=== PATIENT | male | born 2005 | race Caucasian/White ===

== ENCOUNTER 2024-04-03 22:01 | Observation (INO) | payer BC, OTHER ==
--- NOTE | 2024-04-03 22:44 | XR ---
EXAMINATION TYPE: XR chest 2V DATE OF EXAM: 04/03/2024 COMPARISON: NONE HISTORY: Shortness of breath. TECHNIQUE: Frontal and lateral views of the chest are obtained. FINDINGS: There is no focal air space opacity, pleural effusion, or pneumothorax seen. The cardiac silhouette size is within normal limits. The osseous structures are intact. IMPRESSION: No acute cardiopulmonary process. [facility], , 04/03/2024 10:42 PM
[2024-04-03] MEDS: methylPREDNISolone SOD SUCCI 125 MG/2 ML VIAL IM ONE (23:42)
[2024-04-04] MEDS: MAGNESIUM SULFATE-D5W PMX 1 GM in DEXTROSE/WATER 1 100ML.BAG IVPB SCH (01:03)
[2024-04-04] MEDS: methylPREDNISolone SOD SUCCI 125 MG/2 ML VIAL IV STA (01:04)
[2024-04-04] MEDS: predniSONE 20 MG TAB PO STA (01:05)
[2024-04-04 01:11] LABS: Basophils % (A) 0 %; Eosinophils # (A) 0.3 k/uL (0-0.7); Eosinophils % (A) 2 %; HCT 50.9 % (39.0-53.0); HGB 16.1 gm/dL (13.0-17.5); Lymphocytes # (A) 0.5 k/uL (1.0-4.8); Lymphocytes % (A) 3 %; MCH 26.3 pg (25.0-35.0); MCHC 31.7 g/dL (31.0-37.0); MCV 82.9 fL (80.0-100.0); Mean Platelet Volume 7.5; Monocytes # (A) 0.3 k/uL (0-1.0); Monocytes % (A) 2 %; Neutrophils % (A) 93 %; Platelet Count 340 k/uL (150-450); RBC 6.14 m/uL (4.30-5.90); RDW 13.8 % (11.5-15.5); WBC 18.3 k/uL (4.0-11.0)
[2024-04-04] MEDS: IPRATROPIUM-ALBUTEROL 3 ML NEB INHALATION STA ×3 (01:20)
[2024-04-04 01:50] LABS: ALT 24 U/L (4-49); AST 30 U/L (17-59); African American GFR (CKD) >90 (>60 ml/min/1.73 sqM); Albumin 5.4 g/dL (3.5-5.0); Alkaline Phosphatase 93 U/L (38-126); Anion Gap 14 mmol/L; Blood Urea Nitrogen 12 mg/dL (9-20); Carbon Dioxide 20 mmol/L (22-30); Chloride 106 mmol/L (98-107); Glucose 117 mg/dL (74-99); Non-African American GFR(CKD) >90 (>60 ml/min/1.73 sqM); Potassium 4.4 mmol/L (3.5-5.1); Sodium 140 mmol/L (137-145); Total Bilirubin 0.8 mg/dL (0.2-1.3); Total Protein 9.1 g/dL (6.3-8.2)
[2024-04-04] MEDS ORDERED: NALOXONE 0.4 MG/ML 1 ML VIAL IV PRN (02:16)
[2024-04-04] MEDS ORDERED: ACETAMINOPHEN TAB 325 MG TAB PO PRN (02:16)
--- NOTE | 2024-04-04 02:33 | ED ---
URI HPI - General Chief Complaint: Upper Respiratory Infection Stated Complaint: LUKE Time Seen by Provider: 04/03/24 22:53 Source: patient Mode of arrival: ambulatory Limitations: no limitations - History of Present Illness Initial Comments: 18-year-old male with history of asthma presenting with chief complaint of difficulty breathing. Patient states that he feels like he cannot take a deep breath. He has also been coughing. Patient is a daily marijuana smoker and also vapes. No fever. No chest pain. No nausea or vomiting. No congestion or sore throat. He was taking his albuterol inhaler at home without relief. Symptoms have been ongoing for 2 days. - Related Data Previous Rx's Medication Instructions Recorded Ipratropium-Albuterol Nebulize 3 ml INHALATION RT-Q6H PRN #20 each 04/05/24 [Duoneb 0.5 mg-3 mg/3 ml Soln] predniSONE 10 mg PO DIRECTED #12 tab 04/05/24 Allergies Allergy/AdvReac Type Severity Reaction Status Date / Time morphine Allergy Unknown Verified 04/04/24 07:40 Review of Systems ROS Statement: Those systems with pertinent positive or pertinent negative responses have been documented in the HPI. ROS Other: All systems not noted in ROS Statement are negative. Past Medical History Past Medical History: Asthma History of Any Multi-Drug Resistant Organisms: None Reported Past Surgical History: No Surgical Hx Reported Past Psychological History: No Psychological Hx Reported Smoking Status: Never smoker Past Alcohol Use History: None Reported Past Drug Use History: None Reported General Exam Limitations: no limitations General appearance: alert (Short of breath) Head exam: Present: atraumatic, normocephalic, normal inspection Eye exam: Present: normal appearance Neck exam: Present: normal inspection Respiratory exam: Present: wheezes. Absent: rales, rhonchi, stridor Cardiovascular Exam: Present: normal rhythm, tachycardia, normal heart sounds. Absent: systolic murmur, diastolic murmur, rubs, gallop, clicks Neurological exam: Present: alert, oriented X3 Psychiatric exam: Present: normal affect, normal mood Skin exam: Present: warm, dry Course Vital Signs 04/03/24 04/03/24 04/04/24 22:23 23:54 00:00 Temperature 98.7 F Pulse Rate 123 H 107 H 66 Pulse Rate [ Pulse Oximetery ] Respiratory 20 20 20 Rate Blood Pressure 128/79 137/87 Blood Pressure [Left Arm] O2 Sat by Pulse 96 95 Oximetry 04/04/24 04/04/24 04/04/24 00:06 00:30 01:22 Temperature Pulse Rate 69 118 H 117 H Pulse Rate [ Pulse Oximetery ] Respiratory 20 22 20 Rate Blood Pressure 156/78 Blood Pressure [Left Arm] O2 Sat by Pulse 98 Oximetry 04/04/24 04/04/24 04/04/24 01:28 02:56 03:34 Temperature Pulse Rate 122 H 120 H 102 H Pulse Rate [ Pulse Oximetery ] Respiratory 20 20 18 Rate Blood Pressure 131/84 Blood Pressure [Left Arm] O2 Sat by Pulse 97 Oximetry 04/04/24 04/04/24 04/04/24 03:41 04:10 06:44 Temperature 97.8 F Pulse Rate 117 H 128 H Pulse Rate [ 110 H Pulse Oximetery ] Respiratory 18 18 18 Rate Blood Pressure 136/65 Blood Pressure 142/77 [Left Arm] O2 Sat by Pulse 95 94 L Oximetry 04/04/24 04/04/24 04/04/24 07:14 08:01 08:14 Temperature Pulse Rate 117 H 104 H 120 H Pulse Rate [ Pulse Oximetery ] Respiratory 20 Rate Blood Pressure 143/77 Blood Pressure [Left Arm] O2 Sat by Pulse 96 Oximetry Medical Decision Making - Medical Decision Making Was pt. sent in by a medical professional or institution (Dr. PA, SERVICE STATION CASHIER, urgent care, hospital, or care home...) When possible be specific @ -No Did you speak to anyone other than the patient for history (EMS, parent, family, police, friend...)? What history was obtained from this source @ -No Did you review nursing and triage notes (agree or disagree)? Why? @ -I reviewed and agree with nursing and triage notes Were old charts reviewed (outside hosp., previous admission, EMS record, old EKG, old radiological studies, urgent care reports/EKG's, care home records)? Report findings @ -No old charts were reviewed Differential Diagnosis (chest pain, altered mental status, abdominal pain women, abdominal pain men, vaginal bleeding, weakness, fever, dyspnea, syncope, headache, dizziness, GI bleed, back pain, seizure, CVA, palpatations, mental health, musculoskeletal)? @ -MDM Differential Dyspnea: Coronary syndrome, arrhythmia, tamponade, asthma, COPD, pulmonary embolism, pneumonia, pneumothorax, pulmonary effusion, anaphylaxis, diabetic ketoacidosis, flailed chest, pulmonary contusion, diaphragmatic rupture, anemia, neuromuscular this is not meant to be an all-inclusive list. EKG interpreted by me (3pts min.). @ -EKG shows sinus tachycardia ventricular rate 118. IL interval 126. QRS 90. QT 306. QTc 376. X-rays interpreted by me (1pt min.). @ -Chest x-ray shows no acute cardiopulmonary process CT interpreted by me (1pt min.). @ -None done U/S interpreted by me (1pt. min.). @ -None done What testing was considered but not performed or refused? (CT, X-rays, U/S, labs)? Why? @ -None What meds were considered but not given or refused? Why? @ -None Did you discuss the management of the patient with other professionals (professionals i.e. , PA, SERVICE STATION CASHIER, lab, RT, psych nurse, child welfare social worker, data analytics analyst, teacher, systems support officer, case assembler)? Give summary @ -My attending spoke with the [facility] [place] provider on-call who accepts admission Was smoking cessation discussed for >3mins.? @ -No Was critical care preformed (if so, how long)? @ -No Were there social determinants of health that impacted care today? How? (Homelessness, low income, unemployed, alcoholism, drug addiction, transportation, low edu. Level, literacy, decrease access to med. care, detention, rehab)? @ -Smoking Was there de-escalation of care discussed even if they declined (Discuss DNR or withdrawal of care, Hospice)? DNR status @ -No What co-morbidities impacted this encounter? (DM, HTN, Smoking, COPD, CAD, Cancer, CVA, ARF, Chemo, Hep., AIDS, mental health diagnosis, sleep apnea, morbid obesity)? @ -Asthma Was patient admitted / discharged? Hospital course, mention meds given and route, prescriptions, significant lab abnormalities, going to OR and other pertinent info. @ -18-year-old male presenting with chief complaint of shortness of breath. History of asthma. Daily smoker and he also vapes. On physical exam patient has diffuse inspiratory and expiratory wheezes. Patient was taking his albuterol inhaler earlier today and also tried some leftover steroids that his dad had. Patient received Solu-Medrol 1 and 25 mg and 3 DuoNeb breathing treatments. He continued to have wheezes throughout. WBC 15.3, likely from steroid use. Negative troponin. Negative for influenza, RSV, COVID. Chest x- ray shows no acute process. EKG shows sinus tachycardia. Patient will be admitted for asthma exacerbation. He is agreeable with this plan. I discussed this case with my attending Dr. Lock On reassessment patient was having continued shortness of breath. Patient was evaluated by my attending, advised trying 0.3 mg epi subcu. When the nurse went to go give the patient the medication he was tachycardic in the 120s, medication not given due to elevated heart rate Undiagnosed new problem with uncertain prognosis? @ -No Drug Therapy requiring intensive monitoring for toxicity (Heparin, Nitro, Insulin, Cardizem)? @ -No Were any procedures done? @ -No Diagnosis/symptom? @ -Asthma exacerbation Acute, or Chronic, or Acute on Chronic? @ -Acute Uncomplicated (without systemic symptoms) or Complicated (systemic symptoms)? @ -Complicated Side effects of treatment? @ -No Exacerbation, Progression, or Severe Exacerbation? @ -Exacerbation Poses a threat to life or bodily function? How? (Chest pain, [place], [place], pneumonia, PE, COPD, DKA, ARF, appy, cholecystitis, CVA, Diverticulitis, Homicidal, Suicidal, threat to staff... and all critical care pts) @ -Yes - Lab Data Result diagrams: 04/05/24 06:47 04/05/24 06:47 Lab Results 04/04/24 04/04/24 04/04/24 Range/Units 00:57 00:57 00:57 WBC 18.3 H (4.0-11.0) k/uL RBC 6.14 H (4.30-5.90) m/uL Hgb 16.1 (13.0-17.5) gm/dL Hct 50.9 (39.0-53.0) % MCV 82.9 (80.0-100.0) fL MCH 26.3 (25.0-35.0) pg MCHC 31.7 (31.0-37.0) g/dL RDW 13.8 (11.5-15.5) % Plt Count 340 (150-450) k/uL MPV 7.5 Neutrophils % 93 % Lymphocytes % 3 % Monocytes % 2 % Eosinophils % 2 % Basophils % 0 % Neutrophils # 17.0 H (1.3-7.7) k/uL Lymphocytes # 0.5 L (1.0-4.8) k/uL Monocytes # 0.3 (0-1.0) k/uL Eosinophils # 0.3 (0-0.7) k/uL Basophils # 0.0 (0-0.2) k/uL Sodium 140 (137-145) mmol/L Potassium 4.4 (3.5-5.1) mmol/L Chloride 106 (98-107) mmol/L Carbon Dioxide 20 L (22-30) mmol/L Anion Gap 14 mmol/L BUN 12 (9-20) mg/dL Creatinine 0.94 (0.66-1.25) mg/dL Est GFR (CKD-EPI)AfAm >90 (>60 ml/min/1.73 sqM) Est GFR (CKD-EPI)NonAf >90 (>60 ml/min/1.73 sqM) Glucose 117 H (74-99) mg/dL Calcium 10.0 (8.4-10.2) mg/dL Total Bilirubin 0.8 (0.2-1.3) mg/dL AST 30 (17-59) U/L ALT 24 (4-49) U/L Alkaline Phosphatase 93 (38-126) U/L Troponin I <0.012 (0.000-0.034) ng/mL Total Protein 9.1 H (6.3-8.2) g/dL Albumin 5.4 H (3.5-5.0) g/dL Procalcitonin (0.02-0.50) ng/mL Influenza Type A (PCR) (Not Detectd) Influenza Type B (PCR) (Not Detectd) RSV (PCR) (Not Detectd) SARS-CoV-2 (PCR) (Not Detectd) 04/04/24 04/04/24 Range/Units 00:57 01:07 WBC (4.0-11.0) k/uL RBC (4.30-5.90) m/uL Hgb (13.0-17.5) gm/dL Hct (39.0-53.0) % MCV (80.0-100.0) fL MCH (25.0-35.0) pg MCHC (31.0-37.0) g/dL RDW (11.5-15.5) % Plt Count (150-450) k/uL MPV Neutrophils % % Lymphocytes % % Monocytes % % Eosinophils % % Basophils % % Neutrophils # (1.3-7.7) k/uL Lymphocytes # (1.0-4.8) k/uL Monocytes # (0-1.0) k/uL Eosinophils # (0-0.7) k/uL Basophils # (0-0.2) k/uL Sodium (137-145) mmol/L Potassium (3.5-5.1) mmol/L Chloride (98-107) mmol/L Carbon Dioxide (22-30) mmol/L Anion Gap mmol/L BUN (9-20) mg/dL Creatinine (0.66-1.25) mg/dL Est GFR (CKD-EPI)AfAm (>60 ml/min/1.73 sqM) Est GFR (CKD-EPI)NonAf (>60 ml/min/1.73 sqM) Glucose (74-99) mg/dL Calcium (8.4-10.2) mg/dL Total Bilirubin (0.2-1.3) mg/dL AST (17-59) U/L ALT (4-49) U/L Alkaline Phosphatase (38-126) U/L Troponin I (0.000-0.034) ng/mL Total Protein (6.3-8.2) g/dL Albumin (3.5-5.0) g/dL Procalcitonin 0.02 (0.02-0.50) ng/mL Influenza Type A (PCR) Not Detected (Not Detectd) Influenza Type B (PCR) Not Detected (Not Detectd) RSV (PCR) Not Detected (Not Detectd) SARS-CoV-2 (PCR) Not Detected (Not Detectd) Disposition Clinical Impression: Asthma exacerbation Disposition: ADMITTED IP TO THIS [facility] Condition: Stable Time of Disposition: 02:33
[2024-04-04] MEDS: IPRATROPIUM-ALBUTEROL 3 ML NEB INHALATION PRN (03:34)
[2024-04-04] MEDS: MAGNESIUM SULFATE-D5W PMX 1 GM in DEXTROSE/WATER 1 100ML.BAG IVPB ONE (03:57)
[2024-04-04] MEDS: IPRATROPIUM-ALBUTEROL 3 ML NEB INHALATION SCH (08:01)
[2024-04-04] MEDS: SODIUM CHLORIDE 0.9% 1,000 ML IV SCH (11:18)
[2024-04-04] MEDS: methylPREDNISolone SOD SUCCI 125 MG/2 ML VIAL IV SCH (11:37)
--- NOTE | 2024-04-04 13:27 | P.HPIM ---
History of Present Illness H&P Date: 04/04/24 This is a pleasant 18-year-old male with medical history significant for asthma as well as nicotine and weed vaping. Patient is evaluated today in the room with his mother reports that he has been increasingly short of breath over the last couple days has been using his nebulizer at home without improvement in symptoms. He does state that he went to his PCP who ordered him a steroid inhaler which was not covered by his insurance and he was not able to get this. He has not been febrile. He does not see a pre sales systems engineer for his asthma. It is usually managed by an as needed albuterol inhaler which he states prior to the last couple days he has not really needed to use. Chest x-ray on admission shows no acute cardiopulmonary process. Blood cell count was 18.3 on admission, sodium level of 140, potassium 4.4, BUN of 12, creatinine 0.94. Troponin level was negative. Influenza RSV and COVID were negative. Patient was admitted to the hospital and started on IV Solu-Medrol with pulmonary consultation. He is on a combination of Symbicort as well as DuoNeb nebulized scheduled and as ne eded. Patient remains tachycardic heart rate of 1 18-1 20s there is no specific ST or T wave changes on EKG. REVIEW OF SYSTEMS: CONSTITUTIONAL: No fever, no malaise, no fatigue. HEENT: No recent visual problems or hearing problems. Denied any sore throat. CARDIOVASCULAR: No chest pain, orthopnea, PND, no palpitations, no syncope. PULMONARY: Report shortness of breath, no cough, no hemoptysis. GASTROINTESTINAL: No diarrhea, no nausea, no vomiting, no abdominal pain. NEUROLOGICAL: No headaches, no weakness, no numbness. HEMATOLOGICAL: Denies any bleeding or petechiae. GENITOURINARY: Denies any burning micturition, frequency, or urgency. MUSCULOSKELETAL/RHEUMATOLOGICAL: Denies any joint pain, swelling, or any muscle pain. ENDOCRINE: Denies any polyuria or polydipsia. The rest of the 14-point review of systems is negative. PHYSICAL EXAMINATION: GENERAL: The patient is alert and oriented x3, not in any acute distress. Well developed, well nourished. HEENT: Pupils are round and equally reacting to light. EOMI. No scleral icterus. No conjunctival pallor. Normocephalic, atraumatic. No pharyngeal erythema. No thyromegaly. CARDIOVASCULAR: S1 and S2 present. No murmurs, rubs, or gallops. PULMONARY: Scattered wheezing throughout ABDOMEN: Soft, nontender, nondistended, normoactive bowel sounds. No palpable organomegaly. MUSCULOSKELETAL: No joint swelling or deformity. EXTREMITIES: No cyanosis, clubbing, or pedal edema. NEUROLOGICAL: Gross neurological examination did not reveal any focal deficits. SKIN: No rashes. Assessment and plan Acute asthma exacerbation patient will be continued on Symbicort DuoNebs and IV Solu-Medrol pulmonary service is following closely we will check a procalcitonin level and if elevated will start the patient on antibiotic coverage Sinus tachycardia could be baseline patient will be on cardiac telemetry while in the hospital we will gently hydrate and monitor heart rate. Leukocytosis under investigation we will check a procalcitonin level viral panel was negative for influenza COVID and RSV. History of vaping nicotine and marijuana patient was counseled on cessation. GI Prophylaxis Full code The impression and plan of care has been dictated by Gemma Nath, Nurse Practitioner as directed. Dr. Matt MD I have performed a history and physical examination and medical decision making of this patient, discussed the same with the dictator, and agree with the dictators assessment and plan as written, documented as a scribe. Based on total visit time, I have performed more than 50% of this visit. Past Medical History Past Medical History: Asthma History of Any Multi-Drug Resistant Organisms: None Reported Past Surgical History: No Surgical Hx Reported Past Anesthesia/Blood Transfusion Reactions: No Reported Reaction Past Psychological History: No Psychological Hx Reported Smoking Status: Never smoker Past Alcohol Use History: None Reported Past Drug Use History: None Reported Medications and Allergies Home Medications Medication Instructions Recorded Confirmed Type No Known Home Medications 04/04/24 04/04/24 History Allergies Allergy/AdvReac Type Severity Reaction Status Date / Time morphine Allergy Unknown Verified 04/04/24 07:40 Physical Exam Vitals: Vital Signs Temp Pulse Pulse Resp BP BP Pulse Ox 04/04/24 09:01 98.4 F 121 H 16 154/83 90 L 04/04/24 08:14 120 H 04/04/24 08:01 104 H 04/04/24 07:14 117 H 20 143/77 96 04/04/24 06:44 97.8 F 110 H 18 142/77 94 L 04/04/24 04:10 128 H 18 136/65 95 04/04/24 03:41 117 H 18 04/04/24 03:34 102 H 18 04/04/24 02:56 120 H 20 131/84 97 04/04/24 01:28 122 H 20 04/04/24 01:22 117 H 20 04/04/24 00:30 118 H 22 156/78 98 04/04/24 00:06 69 20 04/04/24 00:00 66 20 04/03/24 23:54 107 H 20 137/87 95 04/03/24 22:23 98.7 F 123 H 20 128/79 96 Intake and Output 04/03/24 04/04/24 04/04/24 22:59 06:59 14:59 Other: Weight 95.254 kg 95.254 kg Results CBC & Chem 7: 04/04/24 00:57 04/04/24 00:57 Labs: Abnormal Lab Results - Last 24 Hours (Table) 04/04/24 04/04/24 Range/Units 00:57 00:57 WBC 18.3 H (4.0-11.0) k/uL RBC 6.14 H (4.30-5.90) m/uL Neutrophils # 17.0 H (1.3-7.7) k/uL Lymphocytes # 0.5 L (1.0-4.8) k/uL Carbon Dioxide 20 L (22-30) mmol/L Glucose 117 H (74-99) mg/dL Total Protein 9.1 H (6.3-8.2) g/dL Albumin 5.4 H (3.5-5.0) g/dL Thrombosis Risk Factor Assmnt - Choose All That Apply Any of the Below Risk Factors Present?: No Other Risk Factors: No Thrombosis Risk Factor Assessment Level: Very Low Risk Assessment and Plan Time with Patient: Less than 30
--- NOTE | 2024-04-04 13:38 | P.CNPUL ---
History of Present Illness Consult date: 04/04/24 Requesting physician: Doc Valenzuela Reason for consult: dyspnea, asthma Chief complaint: Shortness of breath, cough, congestion History of present illness: This is a pleasant 18-year-old male patient with a known history of mild intermittent chronic bronchial asthma maintained on albuterol as needed in the outpatient setting. He is a non-smoker of cigarettes however he does vape marijuana. He presented here to the emergency room late last evening with increasing shortness of breath, cough and congestion. Chest x-ray reveals no acute pulmonary process. Count 18.3. Hemoglobin 16.1. Platelets 340. Sodium 140. Potassium 4.4. Bicarb 20. BUN 12. Creatinine 0.94. Glucose 117. Viral screen was negative. He is seen today in consultation on the regular medical floor. He is currently sitting up in bed. Awake and alert in no acute distress. Maintaining good O2 saturations in the 90s. He is still somewhat bronchospastic and wheezing. He will be initiated on DuoNeb inhalations, Symbicort, Solu-Medrol. Review of Systems REVIEW OF SYSTEMS: CONSTITUTIONAL: Denies any recent significant weight loss or weight gain. EYES: Denies change in vision. EARS, NOSE, MOUTH, THROAT: Denies headaches, denies sore throat. CARDIOVASCULAR: Denies chest pain, palpitations or syncopal episodes. RESPIRATORY: Positive for shortness of breath, cough, congestion no hemoptysis. GASTROINTESTINAL: Denies change in appetite, denies abdominal pain GENITOURINARY: Denies hematuria, denies infections. MUSKULOSKELETAL: Denies pain, denies swelling. INTEGUMENTARY: Denies rash, denies eczema. NEUROLOGICAL: Denies recent memory loss, no recent seizure activity. PSYCHIATRIC: Denies anxiety, denies depression. HEMATOLOGIC/LYMPHATIC: Denies anemia, denies enlarged lymph nodes. Past Medical History Past Medical History: Asthma History of Any Multi-Drug Resistant Organisms: None Reported Past Surgical History: No Surgical Hx Reported Past Anesthesia/Blood Transfusion Reactions: No Reported Reaction Past Psychological History: No Psychological Hx Reported Smoking Status: Never smoker Past Alcohol Use History: None Reported Past Drug Use History: None Reported Medications and Allergies Home Medications Medication Instructions Recorded Confirmed Type No Known Home Medications 04/04/24 04/04/24 History Allergies Allergy/AdvReac Type Severity Reaction Status Date / Time morphine Allergy Unknown Verified 04/04/24 07:40 Physical Exam Vitals: Vital Signs Temp Pulse Pulse Resp BP BP Pulse Ox 04/04/24 11:24 120 H 04/04/24 11:13 120 H 04/04/24 09:01 98.4 F 121 H 16 154/83 90 L 04/04/24 08:14 120 H 04/04/24 08:01 104 H 04/04/24 07:14 117 H 20 143/77 96 04/04/24 06:44 97.8 F 110 H 18 142/77 94 L 04/04/24 04:10 128 H 18 136/65 95 04/04/24 03:41 117 H 18 04/04/24 03:34 102 H 18 04/04/24 02:56 120 H 20 131/84 97 04/04/24 01:28 122 H 20 04/04/24 01:22 117 H 20 04/04/24 00:30 118 H 22 156/78 98 04/04/24 00:06 69 20 04/04/24 00:00 66 20 04/03/24 23:54 107 H 20 137/87 95 04/03/24 22:23 98.7 F 123 H 20 128/79 96 Intake and Output 04/03/24 04/04/24 04/04/24 22:59 06:59 14:59 Other: Weight 95.254 kg 95.254 kg GENERAL EXAM: Alert, pleasant 18-year-old male, on room air, fairly comfortable in no apparent distress. HEAD: Normocephalic. EYES: Normal reaction of pupils, equal size. NOSE: Clear with pink turbinates. THROAT: No erythema or exudates. NECK: No masses, no JVD. CHEST: No chest wall deformity. LUNGS: Equal air entry with bilateral end expiratory wheeze. CVS: S1 and S2 normal with no audible murmur, regular rhythm. ABDOMEN: No hepatosplenomegaly, normal bowel sounds, no guarding or rigidity. SPINE: No scoliosis or deformity SKIN: No rashes CENTRAL NERVOUS SYSTEM: No focal deficits, tone is normal in all 4 extremities. EXTREMITIES: There is no peripheral edema. No clubbing, no cyanosis. Peripheral pulses are intact. Results - Laboratory Findings CBC and BMP: 04/04/24 00:57 04/04/24 00:57 Abnormal lab findings: Abnormal Labs 04/04/24 04/04/24 00:57 00:57 WBC 18.3 H RBC 6.14 H Neutrophils # 17.0 H Lymphocytes # 0.5 L Carbon Dioxide 20 L Glucose 117 H Total Protein 9.1 H Albumin 5.4 H - Diagnostic Findings Chest x-ray: image reviewed Assessment and Plan Assessment: Acute exacerbation of mild intermittent chronic bronchial asthma Daily marijuana use/vaping Plan: The patient was seen and evaluated Chest x-ray, labs and medications reviewed Add DuoNeb inhlations 4 times daily and as needed Add Symbicort Add Solu-Medrol Stable and on room air Tolerating a diet Educated regarding the importance of complete smoking cessation, greater than 10 minutes We will continue to follow and make further recommendations based on his clinical status I have personally seen and examined the patient, performed the documentation and the assessment and plan as written. Number of minutes spent on the visit: 20 Dictation was produced using [employer] dictation software. Please excuse any grammatical, word or spelling errors.
[2024-04-04] MEDS: SYMBICORT 160-4.5 MCG INHALER INHALATION SCH (18:42)
[2024-04-05 08:13] VITALS: BP 116/61; RESP 16; TEMP 97.5
[2024-04-05 08:15] VITALS: PULSE 94
[2024-04-05] MEDS: predniSONE 20 MG TAB PO SCH (09:17)
[2024-04-05 10:24] LABS: HCT 48.1 % (39.6-50.0); HGB 15.6 g/dL (13.0-17.0); MCH 26.3 pg (27.0-32.0); MCHC 32.4 g/dL (32.0-37.0); Mean Platelet Volume 9.8 FL (9.5-12.2); NRBC Per 100 WBC 0 X 10*3/uL (0.00-0.01); Platelet Count 386 X 10*3/uL (140-440); RBC 5.94 X 10*6/uL (4.40-5.60); RDW 14.3 % (11.5-14.5); WBC 25.89 X 10*3/uL (4.50-10.00)
--- NOTE | 2024-04-05 12:12 | P.PN ---
Subjective Progress Note Date: 04/05/24 This is a pleasant 18-year-old male patient with a known history of mild intermittent chronic bronchial asthma maintained on albuterol as needed in the outpatient setting. He is a non-smoker of cigarettes however he does vape marijuana. He presented here to the emergency room late last evening with incr easing shortness of breath, cough and congestion. Chest x-ray reveals no acute pulmonary process. Count 18.3. Hemoglobin 16.1. Platelets 340. Sodium 140. Potassium 4.4. Bicarb 20. BUN 12. Creatinine 0.94. Glucose 117. Viral screen was negative. He is seen today in consultation on the regular medical floor. He is currently sitting up in bed. Awake and alert in no acute distress. Maintaining good O2 saturations in the 90s. He is still somewhat bronchospastic and wheezing. He will be initiated on DuoNeb inhalations, Symbicort, Solu-Medrol. The patient is seen today April 05, 2024 in follow-up on the regular medical floor. He is currently resting in bed. Awake and alert in no acute distress. Maintaining good O2 saturations in the 90s on room air. He is feeling better to day compared to yesterday. No worsening shortness of breath, cough or congestion. White count 25.8. Hemoglobin 15.6. Platelets 386. Viral screen was negative. He is continued on DuoNeb inhalations, Symbicort, Solu-Medrol. Objective - Vital Signs Vital signs: Vital Signs Temp 97.5 F L 04/05/24 07:18 Pulse 84 04/05/24 07:55 Resp 16 04/05/24 07:18 BP 116/61 04/05/24 07:18 Pulse Ox 95 04/05/24 07:18 FiO2 Intake & Output 04/04/24 04/05/24 04/05/24 18:59 06:59 18:59 Intake Total 900 240 Balance 900 240 Intake: Intake, IV Titration 900 Amount Sodium Chloride 0.9% 1, 900 000 ml @ 75 mls/hr IV . [id number] SAMINA Rx#:[id number] Oral 240 Other: # Voids 1 - Exam GENERAL EXAM: Alert, active, 18-year-old male, on room air, comfortable in no apparent distress. HEAD: Normocephalic. EYES: Normal reaction of pupils, equal size. NOSE: Clear with pink turbinates. THROAT: No erythema or exudates. NECK: No masses, no JVD. CHEST: No chest wall deformity. LUNGS: Equal air entry with faint end expiratory wheeze. CVS: S1 and S2 normal with no audible murmur, regular rhythm. ABDOMEN: No hepatosplenomegaly, normal bowel sounds, no guarding or rigidity. SPINE: No scoliosis or deformity SKIN: No rashes CENTRAL NERVOUS SYSTEM: No focal deficits, tone is normal in all 4 extremities. EXTREMITIES: There is no peripheral edema. No clubbing, no cyanosis. Peripheral pulses are intact. - Labs CBC & Chem 7: 04/05/24 06:47 04/04/24 00:57 Labs: Abnormal Lab Results - Last 24 Hours (Table) 04/05/24 Range/Units 06:47 WBC 25.89 H (4.50-10.00) X 10*3/uL RBC 5.94 H (4.40-5.60) X 10*6/uL MCH 26.3 L (27.0-32.0) pg Assessment and Plan Assessment: Acute exacerbation of mild intermittent chronic bronchial asthma Daily marijuana use/vaping Plan: The patient was seen and evaluated Labs and medications reviewed Stable and on room air Cleared for discharge from the pulmonary standpoint Recommend prednisone 40 mg daily x 7 days Again encouraged regarding complete smoking cessation Follow-up closely with his PCP This patient was seen independently by the pulmonary nurse practitioner addressing pulmonary issues I have personally seen and examined the patient, performed the documentation and the assessment and plan as written. Number of minutes spent on the visit: 23 Dictation was produced using [employer] dictation software. Please excuse any grammatical, word or spelling errors.
[2024-04-05 12:17] LABS: Basophils # (A) 0.05 X 10*3/uL (0.00-0.10); Basophils % (A) 0.2 %; Eosinophils # (A) 0.01 X 10*3/uL (0.04-0.35); Eosinophils % (A) 0 %; Lymphocytes # (A) 1.19 X 10*3/uL (0.90-5.00); Lymphocytes % (A) 4.6 %; Monocytes # (A) 1.36 X 10*3/uL (0.20-1.00); Monocytes % (A) 5.3 %; Neutrophils # (A) 23.15 X 10*3/uL (1.80-7.70); Neutrophils % (A) 89.4 %; RBC Morphology Normal (Normal)
[2024-04-05 13:23] LABS: Blood Urea Nitrogen 18.1 mg/dL (9.0-27.0); Carbon Dioxide 20.1 mmol/L (21.6-31.8); Chloride 104 mmol/L (96-109); Glucose 115 mg/dL (70-110); Potassium 5.3 mmol/L (3.5-5.5); Sodium 137 mmol/L (135-145)
--- NOTE | 2024-04-06 15:12 | P.DS ---
Providers Date of admission: 04/04/24 01:46 Attending physician: Campos Hamilton Consults: 04/04/24 02:16 Consult Physician Urgent Consulting Provider: Ti Pereira Reason/Comments: Asthma exacerbation Do you want consulting provider notified?: Yes, Notify in am Primary care physician: Isabella Baez [place] Hospital Course: Final Diagnosis Acute asthma exacerbation Sinus tachycardia Leukocytosis History of vaping nicotine and marijuana patient was counseled on cessation. Discharge Disposition Stable for discharge home. He is counseled extensively on importance of stopping vaping and he is agreeable to this. He states that he has been cutting back. He is prescribed DuoNeb for his nebulizer as well as a short burst of oral prednisone. He has a follow-up with his PCP Dr. Baez on April 09 at 10:15 AM. Hospital Course This is a pleasant 18-year-old male with medical history significant for asthma as well as nicotine and weed vaping. Patient is evaluated today in the room with his mother reports that he has been increasingly short of breath over the last couple days has been using his nebulizer at home without improvement in symptoms. He does state that he went to his PCP who ordered him a steroid inhaler which was not covered by his insurance and he was not able to get this. He has not been febrile. He does not see a bilingual case manager for his asthma. He has chronic bronchial asthma. It is usually managed by an as needed albuterol inhaler which he states prior to the last couple days he has not really needed to use. Chest x-ray on admission shows no acute cardiopulmonary process. Blood cell count was 18.3 on admission, sodium level of 140, potassium 4.4, BUN of 12, creatinine 0.94. Troponin level was negative. Influenza RSV and COVID were negative. Patient was admitted to the hospital and started on IV Solu-Medrol with pulmonary consultation. He is on a combination of Symbicort as well as DuoNeb nebulized scheduled and as needed. Patient remains tachycardic heart rate of 1 18-1 20s there is no specific ST or T wave changes on EKG. was monitored overnight. He is no longer wheezing. Heart rate is down below 100. He is on room air. Procalcitonin level was within normal limits. He will be discharged home. Please see medication reconciliation for a list of current medications. Thank you for allowing us to participate in the care of this patient. The impression and plan of care has been dictated by Gemma Nath, Nurse Practitioner as directed. Dr. Matt MD I have performed a history and physical examination and medical decision making of this patient, discussed the same with the dictator, and agree with the dictators assessment and plan as written, documented as a scribe. Based on total visit time, I have performed more than 50% of this visit. Patient Condition at Discharge: Stable Plan - Discharge Summary Discharge Rx Participant: Yes New Discharge Prescriptions: New Ipratropium-Albuterol Nebulize [Duoneb 0.5 mg-3 mg/3 ml Soln] 3 ml INHALATION RT-Q6H PRN #20 each PRN Reason: Shortness Of Breath Or Wheezing predniSONE 10 mg PO DIRECTED #12 tab Discharge Medication List Ipratropium-Albuterol Nebulize [Duoneb 0.5 mg-3 mg/3 ml Soln] 3 ml INHALATION RT-Q6H PRN #20 each 04/05/24 [Rx] predniSONE 10 mg PO DIRECTED #12 tab 04/05/24 [Rx] Follow up Appointment(s)/Referral(s): Isabella Baez MD [Primary Care Provider] - 04/09/24 10:15 am Patient Instructions/Handouts: Prednisone (By mouth), Ipratropium/Albuterol (By breathing), Asthma (DC) Activity/Diet/Wound Care/Special Instructions: Can use the combination bronchodilator/steroid "duoneb" for the nebulizer every 6 hours as needed for shortness of breath or wheezing Discharge Disposition: HOME SELF-CARE
== END 2024-04-05 11:33 | disposition home or self-care (01) ==
LOC: EC 22:01 → 5NMEDONC 04-04 01:46
PROVIDERS: ADMIT Hospitalist; ATTEND Hospitalist
DX: J45.901 Unspecified asthma with (acute) exacerbation (principal); R00.0 Tachycardia, unspecified; D72.829 Elevated white blood cell count, unspecified; F12.90 Cannabis use, unspecified, uncomplicated; F17.290 Nicotine dependence, other tobacco product, uncomplicated; Z79.51 Long term (current) use of inhaled steroids; Z88.5 Allergy status to narcotic agent
CPT/HCPCS: 96376 ×2; 96365; 96366; 96375; 99285; 36415; 94640 ×4; 93005; 80053; 80048; 84484; 85025 ×2; 84145; 87636; 71046; G0378 ×2; J3475; J7512; J2919 ×2